=== PATIENT | female | born 1990 | race Caucasian/White ===

== ENCOUNTER → 2017-03-19 | Outpatient (CLI) | payer OTHER, BC ==
[~2017-03-19] MED LIST: APAP500 PO; COLACE 100 MG100 MG PO; DERMOPLAST SPRA56 ML; HYDROCORTISONE30 G9 RE; IBUPROFEN 800800 M1 PO; LANOLIN56 GM; TUCKS MEDICATE1 EAC1
== END ==
LOC: ULTRA 16:28
DX: M79.604 Pain in right leg (principal); R79.89 Other specified abnormal findings of blood chemistry